=== PATIENT | female | born 1990 ===

== ENCOUNTER 2024-02-10 01:16 | Emergency (ER) | payer OTHER, BC ==
[2024-02-10 02:00] LABS: Bacteria/HPF None Seen HPF (None Seen); Bilirubin Negative (Negative); Blood, Urine Negative (Negative); CAUTI Indications for Culture Pelvic or flank pain; Clarity Clear (Clear); Glucose, Urine (Dipstick) Normal (Negative); Ketone, Urine Negative (Negative); Leukocyte Negative Leu/uL (Negative); Nitrite Negative (Negative); Protein, Urine (Dipstick) Negative (Neg-Trace); RBC/HPF 0-3 HPF (0-3); Specific Gravity, Urine 1.019 (1.002-1.036); Squamous Epithelial 0-3 HPF (0-3); Urobilinogen Normal mg/dL (Less than 2); WBC/HPF 0-3 HPF (0-3); pH, Urine 5.5 (5.0-9.0)
[2024-02-10 02:03] LABS: Pregnancy Test - Urine (BHCG) Negative (Negative); Pregu Control Background? CLEAR/WHITE (CLR/WHITE); Pregu Control Bar Appear? YES (CONTROL BAR); Specific Gravity 1.019 (1.002-1.036)
[2024-02-10 02:04] LABS: Urine Culture Reflex No No
[2024-02-10 02:08] LABS: #Basophils Less than 0.03 10x3/uL (0.0-0.2); %Basophils 0.3 % (0.0-1.0); %Eosinophils 0.7 % (0.0-10.0); %Lymphocytes 29.4 % (21.0-51.0); %Monocytes 5.6 % (0.0-10.0); %Neutrophils 63.9 % (42.0-75.0); Hematocrit 39.8 % (36.0-47.0); Hemoglobin 13.8 g/dL (12.0-16.0); Mean Corpuscular HGB CONC 34.7 g/dL (32.0-36.0); Mean Corpuscular Hemoglobin 30.2 pg (27.0-31.0); Mean Corpuscular Volume 87.1 fL (78.0-98.0); Mean Platelet Volume 10.2 fL (7.4-10.4); Platelet Count 231 10x3/uL (130-400); RBC Distribution Width 12.2 % (11.5-14.5); Red Blood Cell (RBC) Count 4.57 mill/uL (4.20-5.40)
[2024-02-10 02:30] LABS: Globulin 3.7 g/dL (2.4-3.5)
[2024-02-10 02:34] LABS: ALT (SGPT) 12 U/L (8-55); AST (SGOT) 19 U/L (5-34); Albumin 4.1 g/dL (3.5-5.0); Alkaline Phosphatase 83 U/L (40-110); Anion Gap 12 mmol/L (10-20); BUN (Urea Nitrogen) 8 mg/dL (7.0-18.7); Calc. Creatinine Clearance 0 mL/min (70-130); Calcium 9.4 mg/dL (7.8-10.44); Carbon Dioxide 24 mmol/L (22-29); Chloride 107 mmol/L (98-107); Estimated GFR 95; Glucose 95 mg/dL (70-105); Potassium 3.9 mmol/L (3.5-5.1); Protein, Total 7.8 g/dL (6.0-8.3); Sodium 139 mmol/L (136-145)
[2024-02-10] MEDS ORDERED: Ketorolac Tromethamine 30 MG (1 mL) VIAL ONE (02:48)
[2024-02-10] MEDS ORDERED: Acetaminophen 500 MG TAB ONE (02:48)
[2024-02-10] MEDS ORDERED: Ondansetron PF 4 MG/2 ML Vial ONE (02:50)
[2024-02-10] MEDS ORDERED: Sodium Chloride 0.9% 100 ML ONE (04:41)
[2024-02-10] MEDS ORDERED: Piperacillin/Tazobactam 4.5 GM VIAL ONE (04:41)
[2024-02-10] MEDS ORDERED: Iopamidol-370 76% 500 ML MDV (1 ML CHARGE) ONE (11:41)
== END 2024-02-10 05:30 | disposition home or self-care (01) ==
LOC: ERS 01:16
DX: K57.32 Diverticulitis of large intestine without perforation or abscess without bleeding (principal)
CPT/HCPCS: 36415; 74177; 80053; 81001; 81025; 83690; 85025; 94760; 96374; 96375; J1885; J2405; J2543; J3490; Q9967